=== PATIENT | female | born 1965 | race Caucasian/White ===

== ENCOUNTER 2018-09-21 06:54 | Day surgery (SDC) | payer OTHER ==
[~2018-09-21] VITALS: Ht 157.5 cm; Wt 54.1 kg
[~2018-09-21 06:54] MED LIST: Antivert25 MG PO; BUPR75 PO; Budeprion Xl300 MG PO; Glucosamine &1 EACH PO; Hair, Skin & N1 EACH PO; Mobic15 MG PO; ONDA4ODT MM; TOPI50 PO; Xanax0.5 MG PO
--- NOTE | 2018-09-21 09:27 | NUR ---
09/21/18 0927 Oralia Jo DC'D IV PRIOR TO DISCHARGE, SITE LOOKED GOOD.
== END 2018-09-21 09:17 | disposition home or self-care (01) ==
LOC: ORSCSDS 06:54
PROVIDERS: Internal Medicine Gastroenterology
PROC: 0DBK8ZX Excision of Ascending Colon, Via Natural or Artificial Opening Endoscopic, Diagnostic (ICD-10-PCS; principal; 2018-09-21 08:30)
PROC: 0DBN8ZX Excision of Sigmoid Colon, Via Natural or Artificial Opening Endoscopic, Diagnostic (ICD-10-PCS; principal; 2018-09-21 08:30)
DX: Z12.11 Encounter for screening for malignant neoplasm of colon (principal); D12.2 Benign neoplasm of ascending colon; K63.5 Polyp of colon; K64.4 Residual hemorrhoidal skin tags; K64.1 Second degree hemorrhoids; G25.0 Essential tremor; F41.1 Generalized anxiety disorder; Z87.891 Personal history of nicotine dependence; Z79.899 Other long term (current) drug therapy
CPT/HCPCS: 88305; J1980; J2405; J2704; J7120